=== PATIENT | male | born 1980 | race Native Hawaiian/Other Pacific Islander ===

== ENCOUNTER 2018-01-27 12:29 | Outpatient (CLI) | payer OTHER ==
[2018-01-27 12:51] LABS: PLATELET COUNT 239 K/uL (142-355)
[2018-01-27 13:13] LABS: POTASSIUM 4.6 mmol/L (3.6-5.2)
== END 2018-01-27 20:25 | disposition home or self-care (01) ==
LOC: RAD 12:29
PROVIDERS: Physician Assistant
DX: I10 Essential (primary) hypertension (principal); R60.0 Localized edema; R79.89 Other specified abnormal findings of blood chemistry
CPT/HCPCS: 36415; 80053; 80061; 83036; 84439; 84443; 85027